=== PATIENT | male | born 1995 | race Caucasian/White ===

== ENCOUNTER 2019-09-13 17:45 | Emergency (ER) | payer OTHER ==
[2019-09-13 18:28] VITALS: BP 150/91
--- NOTE | 2019-09-13 18:45 | UC ---
Throat Pain/Nasal Felix HPI - HPI Summary HPI Summary: Pt presents with c/o ST, "stomach ache" X 3 days. Pt after being triaged stated that he had an occasional cough, denied fever, chills or body aches. - History of Current Complaint Chief Complaint: UCGeneralIllness Stated Complaint: STOMACH ACHE AND SORE THROAT Time Seen by Provider: 09/13/19 18:16 Hx Obtained From: Patient Onset/Duration: Sudden Onset, Lasting Days, Still Present Severity: Moderate Pain Intensity: 6 Cough: Nonproductive Associated Signs & Symptoms: Positive: Dysphagia - Epiglottits Risk Factors Epiglottis Risk Factors: Sudden Onset - Allergies/Home Medications Allergies/Adverse Reactions: Allergies Allergy/AdvReac Type Severity Reaction Status Date / Time Unable to Assess Allergy Verified 09/13/19 18:31 Home Medications: Home Medications NK [No Home Medications Reported] 09/13/19 [History Confirmed 09/13/19] PMH/Surg Hx/FS Hx/Imm Hx Previously Healthy: Yes - Surgical History Surgical History: None - Family History Known Family History: Positive: Cardiac Disease - Social History Occupation: Employed Full-time Lives: With Family Alcohol Use: Occasionally Substance Use Type: None Smoking Status (MU): Light Every Day Tobacco Smoker Have You Smoked in the Last Year: Yes - Immunization History Vaccination Up to Date: Yes Review of Systems All Other Systems Reviewed And Are Negative: Yes Constitutional: Positive: Fatigue Skin: Positive: Negative Eyes: Positive: Negative ENT: Positive: Sore Throat Respiratory: Positive: Cough Cardiovascular: Positive: Negative Gastrointestinal: Positive: Abdominal Pain - "Stomach ache" Genitourinary: Positive: Negative Motor: Positive: Negative Neurovascular: Positive: Negative Musculoskeletal: Positive: Negative Neurological/Mental Status: Positive: Negative Psychological: Positive: Negative Is Patient Immunocompromised?: No Physical Exam Triage Information Reviewed: Yes Appearance: Well-Appearing Vital Signs: Initial Vital Signs Temp 99.0 F 09/13/19 18:23 Pulse 87 09/13/19 18:23 Resp 16 09/13/19 18:23 BP 150/91 09/13/19 18:23 Pulse Ox 97 09/13/19 18:23 Vital Signs Reviewed: Yes Eye Exam: Normal ENT: Positive: Pharyngeal erythema Dental Exam: Normal Neck exam: Normal Respiratory: Positive: No respiratory distress Musculoskeletal Exam: Normal Neurological Exam: Normal Psychological Exam: Normal Skin Exam: Normal Throat Pain/Nasal Course/Dx - Differential Dx/Diagnosis Differential Diagnosis/HQI/PQRI: Influenza, Pharyngitis, Tonsillitis Provider Diagnosis: Sore throat (viral) Discharge ED - Sign-Out/Discharge Documenting (check all that apply): Patient Departure All imaging exams completed and their final reports reviewed: No Studies - Discharge Plan Condition: Stable Disposition: HOME Patient Education Materials: Viral Syndrome (ED) Referrals: No Primary Care Phys,NOPCP [Primary Care Provider] - Additional Instructions: Please follow up with your PCP. Please keep in mind the Global Pandemic that is currently going on. Please follow the directions given by the CDC. - Billing Disposition and Condition Condition: STABLE Disposition: Home
== END 2019-09-13 19:06 | disposition home or self-care (01) ==
LOC: UCCORT 17:45
DX: J02.8 Acute pharyngitis due to other specified organisms (principal); R05 Cough; R10.9 Unspecified abdominal pain; R53.83 Other fatigue; F17.200 Nicotine dependence, unspecified, uncomplicated
CPT/HCPCS: 87651; 99201; G0463